=== PATIENT | male | born 2000 | race Caucasian/White ===

== ENCOUNTER 2025-06-23 19:26 | Emergency (ER) | payer SELFPAY ==
[~2025-06-23] VITALS: Ht 170.2 cm; Wt 96.0 kg
[2025-06-23 20:04] VITALS: O2SAT 100
[2025-06-23] MEDS ORDERED: DOXY150T9 MT (21:25)
[2025-06-23] MEDS ORDERED: METR-167 MT (21:26)
[2025-06-23] MEDS: METRONIDAZOLE 500MG TABLET PO ONE (21:44)
[2025-06-23] MEDS: DOXYCYCLINE HYCLATE 100MG CAPSULE PO ONE (21:44)
[2025-06-23] MEDS: CEFTRIAXONE SODIUM 500MG VIAL IM ONE (21:45)
[2025-06-23 21:53] VITALS: BP 138/91; PULSE 87; RESP 18; TEMP 36.9; O2SAT 100
[2025-06-26 04:07] LABS: CHLAMYDIA TRACHOMATIS NAA Negative (Negative); NEISSERIA GONORRHOEAE NAA Negative (Negative)
== END 2025-06-23 21:53 | disposition home or self-care (01) ==
LOC: ER 19:26
DX: R03.0 Elevated blood-pressure reading, without diagnosis of hypertension (principal); Z11.3 Encounter for screening for infections with a predominantly sexual mode of transmission; R21 Rash and other nonspecific skin eruption
CPT/HCPCS: 99283; 86592; 87491; 87591; 36415; 96372; J0696